=== PATIENT | male | born 1980 | race Caucasian/White ===

== ENCOUNTER 2025-05-14 23:03 | Emergency (ER) | payer BC, SELFPAY ==
[2025-05-14 23:38] VITALS: BP 145/95; PULSE 97; TEMP 36.5; O2SAT 97; BMI 34.7
--- NOTE | 2025-05-14 23:44 | ED_ITS ---
HPI HPI - Back Pain/Injury General Chief Complaint: Back Pain/Injury Stated Complaint: BACK PAIN Time Seen by Provider: 05/14/25 23:39 Source: patient Mode of arrival: walk-in History of Present Illness HPI Narrative: past history of recurrent back pain and left sided sciatica. states started again a couple of days ago. Tried to work tonight but couldn't because of the pain. no weakness or paresthesia of his extremities . No fever or chills. is daily smoker and has cough. not short of breath. Denies fall or injury to his back Related Data Home Medications ?Medication ?Instructions ?Recorded ?Confirmed methocarbamol 750 mg tablet mg 05/14/25 omeprazole 40 mg capsule,delayed mg 05/14/25 release Allergies Allergy/AdvReac Type Severity Reaction Status Date / Time Penicillins Allergy Unknown Unknown Verified 05/14/25 23:46 Review of Systems 2 ROS0 Status of ROS 10 or more systems reviewed and unremark able except as noted in history and below PFSH PFSH Social History Little interest or pleasure in doing things: not at all Feeling down, depressed, or hopeless: not at all Exam Constitutional Vital Signs, click to edit/add: Last Vital Signs Temp 97.7 F 05/14/25 23:38 Pulse 97 H 05/14/25 23:38 Resp 18 05/14/25 23:38 BP 145/95 H 05/14/25 23:38 Pulse Ox 97 05/14/25 23:38 O2 Del Method Room Air 05/14/25 23:38 Common normals: no apparent distress, average body habitus, oriented x3, no limitations, healthy appearing, alert and well nourished [facility] Common normals: normocephalic and head/scalp atraumatic Eye Common normals: PERRL and EOMs intact bilaterally Respiratory Common normals: normal respiratory effort, no retractions, no use of accessory muscles and clear to auscultation bilaterally Cardio Common normals: regular rate, regular rhythm, S1 normal heart sound and S2 normal heart sound GI Common normals: Normal to inspection, nondistended, normoactive bowel sounds present, soft to palpation and non-tender Back & Pelvis Back image (male): 2 1. mild tenderness Extremity Common normals: normal to inspection and full ROM Neuro Common normals: oriented x3, moves all extremities and no focal motor deficits Psych Appearance: grossly normal Course Vital Signs Vital signs: Vital Signs Temperature 97.7 F 05/14/25 23:38 Pulse Rate 97 H 05/14/25 23:38 Respiratory Rate 18 05/14/25 23:38 Blood Pressure 145/95 H 05/14/25 23:38 Pulse Oximetry 97 05/14/25 23:38 Oxygen Delivery Method Room Air 05/14/25 23:38 Temperature 97.7 F 05/14/25 23:38 Pulse Rate 97 H 05/14/25 23:38 Respiratory Rate 18 05/14/25 23:38 Blood Pressure 145/95 H 05/14/25 23:38 Pulse Oximetry 97 05/14/25 23:38 Oxygen Delivery Method Room Air 05/14/25 23:38 MDM - Back Pain/Injury MDM Narrative Medical decision making narrative: patient presents with left sided sciatica pain . no neuro weakness or numbness. able to walk but uncomfortable. also has cough and is daily smoker. cxray per my review is without acute findings. Patient treated for his pain with solumedrol , toradol and magnesium and is now feeling better. Pain not resolved but much better. He is discharged home with a prescription for prednisone and is to follow up with his doctor Lab Data Labs: Lab Results 05/15/25 05/15/25 Range/Units 00:12 00:38 WBC 10.5 (4.0-11.0) 10^3/uL RBC 4.99 (4.70-6.10) 10^6/uL Hgb 16.0 (14.0-18.0) g/dL Hct 47.2 (42.0-54.0) % MCV 94.6 H (80.0-94.0) fL MCH 32.1 (25.9-34.0) pg MCHC 33.9 (29.9-35.2) g/dL RDW 12.8 (11.0-15.0) % Plt Count 265 (150-450) 10^3/uL MPV 9.6 (9.5-13.5) fL Neut % (Auto) 56.7 (43.0-75.0) % Lymph % (Auto) 33.7 (20.5-60.0) % [place] % (Auto) 6.3 (1.7-12.0) % Eos % (Auto) 2.5 (0.9-7.0) % Baso % (Auto) 0.6 (0.2-2.0) % Neut # (Auto) 6.0 (1.4-6.5) 10^3/uL Lymph # (Auto) 3.5 (1.2-3.8) 10^3/uL [place] # (Auto) 0.7 (0.3-0.8) 10^3/uL Eos # (Auto) 0.3 (0.0-0.7) 10^3/uL Baso # (Auto) 0.1 (0.0-0.1) 10^3/uL Abs Immat Gran (auto) 0.02 (0.00-0.03) 10^3/uL Imm/Tot Granulo (auto) 0.2 (0.0-0.5) % ESR 14 (<=15) mm/hr Sodium 139 (136-145) mmol/L Potassium 4.4 (3.5-5.1) mmol/L Chloride 105 (98-107) mmol/L Carbon Dioxide 24.7 (21.0-32.0) mmol/L Anion Gap 13.7 BUN 11.0 (7.0-18.0) mg/dL Creatinine 0.87 (0.70-1.30) mg/dL Est GFR ( Amer) >60 (>=60 mL/min/1.73m^2) Est GFR (Non-Af Amer) >60 (>=60 mL/min/1.73m^2) BUN/Creatinine Ratio 12.6 Glucose 127 H (74-106) mg/dL Calcium 9.2 (8.5-10.1) mg/dL C-Reactive Protein <0.50 (<=0.50) mg/dL Streptococcus Screen Negative Discharge Plan Discharge Chief Complaint: Back Pain/Injury Clinical Impression: Sciatica Patient Disposition: Home, Self-Care Prescriptions / Home Meds: No Action omeprazole 40 mg capsule,delayed release(DR/EC) methocarbamol 750 mg tablet Print Language: Colombian Instructions: Sciatica (ED) Additional Instructions: follow up with your doctor in the next 2-3 days for recheck Referrals: iVrgilio Bernal DO [Primary Care Provider] - 1 week
--- NOTE | 2025-05-14 23:47 | XR_ITS ---
[address] [address] Patient Name: ROSIE KEMP MRN: [id number] date: 1980 Sex: M Assigned Patient Location: ER Current Patient Location: Accession/Order Number: [id number] Exam Date: 05/14/2025 23:59 Report Date: 05/15/2025 08:48 At the request of: JORDAN KIDD MD Procedure: XR chest 1V PORTABLE AP ERECT CHEST 2345 hours CLINICAL HISTORY: cough for the past week COMPARISON: None Evaluation is slightly limited by large body habitus. The heart is within normal limits. There is no vascular congestion. The lungs, as visualized, are clear. There is no effusion or pneumothorax. The osseous structures are intact. There is slight dextroscoliotic curvature. XR/XR chest 1V IMPRESSION: NO ACUTE FINDINGS Impression dictated by: Ashley Cotton M.D. 05/15/2025 8:48 AM Dictation Location: [place] [address] Electronically authenticated by: [id number] Y Date: 05/15/2025 08:48
[2025-05-15 00:19] LABS: Hematocrit 47.2 % (42.0-54.0); Hemoglobin 16.0 g/dL (14.0-18.0); Immature Granulocytes Abs Auto 0.02 10^3/uL (0.00-0.03); Immature Granulocytes Pct Auto 0.2 % (0.0-0.5); Lymphocytes Absolute Auto 3.5 10^3/uL (1.2-3.8); Mean Corpuscular HGB Conc 33.9 g/dL (29.9-35.2); Mean Corpuscular Hemoglobin 32.1 pg (25.9-34.0); Mean Corpuscular Volume 94.6 fL (80.0-94.0); Platelet Count 265 10^3/uL (150-450); Red Blood Count 4.99 10^6/uL (4.70-6.10); White Blood Count 10.5 10^3/uL (4.0-11.0)
[2025-05-15] MEDS: METHYLPREDNISOLONE SOD SUCC PF 40 MG/ML VIAL IVP (00:30)
[2025-05-15] MEDS: KETOROLAC TROMETHAMINE 30 MG/ML VIAL IVP (00:31)
[2025-05-15] MEDS: MAGNESIUM SULFATE IN WATER 2 GM/50 ML PREMIX IV (00:31)
[2025-05-15 00:32] LABS: Anion Gap 13.7; Blood Urea Nitrogen 11.0 mg/dL (7.0-18.0); Calcium 9.2 mg/dL (8.5-10.1); Carbon Dioxide 24.7 mmol/L (21.0-32.0); Chloride 105 mmol/L (98-107); Estimated GFR (African America >60 (>=60 mL/min/1.73m^2); Estimated GFR (Non-African Ame >60 (>=60 mL/min/1.73m^2); Glucose 127 mg/dL (74-106); Potassium 4.4 mmol/L (3.5-5.1); Sodium 139 mmol/L (136-145)
== END 2025-05-15 03:25 | disposition home or self-care (01) ==
PROVIDERS: Emergency Provider Internal Medicine; PCP Student in an Organized Health Care Education/Training Program
DX: M54.32 Sciatica, left side (principal); R05.9 Cough, unspecified; F17.200 Nicotine dependence, unspecified, uncomplicated
CPT/HCPCS: 36415; 71045; 80048; 85025; 85652; 86140; 87070; 87880; 96365; 96375; 99284; J1885; J2919; J3475